=== PATIENT | female | born 1995 | race Caucasian/White ===

== ENCOUNTER 2018-03-06 15:00 | Emergency (ER) | payer MEDICAID ==
[2018-03-06] MEDS: HYDROCODONE/APAP (5/325) TAB PO (17:54)
== END 2018-03-06 18:02 | disposition home or self-care (01) ==
LOC: FTE 15:00
DX: S06.0X0A Concussion without loss of consciousness, initial encounter (principal); S10.93XA Contusion of unspecified part of neck, initial encounter; S20.20XA Contusion of thorax, unspecified, initial encounter; M62.838 Other muscle spasm; R07.9 Chest pain, unspecified; V49.40XA Driver injured in collision with unspecified motor vehicles in traffic accident, initial encounter
CPT/HCPCS: 70450; 71046; 72125; 73000; 81025; 99285-25